=== PATIENT | male | born 1995 | race Caucasian/White ===

== ENCOUNTER 2021-05-01 16:52 | Emergency (ER) | payer OTHER, SELFPAY ==
[2021-05-01] VITALS (12 sets, daily range): BP systolic 124–152; BP diastolic 66–95; PULSE 112–147; RESP 9–32; TEMP 36.2; O2SAT 96–100; BMI 45.1
--- NOTE | 2021-05-01 17:27 | ED.GENADULT ---
HPI - General Adult General Chief complaint: Diabetic Problem Stated complaint: high blood sugar Time Seen by Provider: 05/01/21 17:02 Source: patient Mode of arrival: Ambulatory Limitations: no limitations Related Data Allergies Allergy/AdvReac Type Severity Reaction Status Date / Time No Known Drug Allergies Allergy Verified 05/01/21 17:15 Patient History Social History Smoking Status: Former smoker Smoking Status: Former smoker alcohol intake frequency: 0-2 drinks per day Substance Use Type: does not use Exam Initial Vital Signs Initial Vital Signs: Vital Signs Temperature 97.1 F L 05/01/21 17:09 Pulse Rate 147 H 05/01/21 17:09 Respiratory Rate 28 H 05/01/21 17:09 Blood Pressure 152/66 H 05/01/21 17:09 Pulse Oximetry 98 05/01/21 17:09 Course Orders Ordered: ED Orders 05/01/21 17:16 Blood Culture Stat Complete Blood Count AUTO DIFF Stat Comprehensive Metabolic Panel Stat Ketones (Beta-Hydroxybutyrate) Stat Lactate (Lactic Acid) Stat Procalcitonin Stat Venous Blood Gas Stat EKG-12 Lead Stat Sodium Chloride (Normal Saline 0.9%) 1,000 mls @ 1,000 mls/hr IV BOLUS ONE Stop: 05/01/21 18:15 Vital Signs Vital signs: Vital Signs - 8 hr 05/01/21 17:09 Temperature 97.1 F L Pulse Rate 147 H Respiratory Rate 28 H Blood Pressure 152/66 H Pulse Oximetry 98
[2021-05-01 17:42] LABS: Add Manual Diff / Slide Review NO; Basophils Absolute Auto 100 /uL (0-100); Basophils Percent Auto 0.8 % (0-2); Eosinophils Absolute Auto 100 /uL (0-450); Eosinophils Percent Auto 1.1 % (2-4); Hematocrit 45.5 % (41-53); Hemoglobin 16.3 g/dL (13.5-17.5); Lymphocytes Absolute Auto 800 /uL (1100-4500); Lymphocytes Percent Auto 10.7 % (25-40); Mean Corpuscular HGB Conc 35.9 % (30-36); Mean Corpuscular Hemoglobin 30.8 PG (26-34); Mean Corpuscular Volume 85.8 fL (80-100); Monocytes Absolute Auto 800 /uL (0-900); Monocytes Percent Auto 10.8 % (3-14); Neutrophils Absolute Auto 6000 /uL (1500-7000); Neutrophils Percent Auto 76.6 % (50-75); Platelet Count 248 X10^3/uL (150-400); Red Cell Distribution Width 12.4 % (11.6-14.8); White Blood Cell Count 7.9 X10^3/uL (4.5-11.0)
[2021-05-01] MEDS: SODIUM CHLORIDE 0.9% 1,000 ML 1000 ML IV ×2 (17:42→19:02)
[2021-05-01 17:51] LABS: Alanine Aminotransferase 147 IU/L (<50); Albumin 4.8 g/dL (3.5-5.0); Albumin Globulin Ratio 1.5 (1.0-2.8); Alkaline Phosphatase 93 U/L (38-126); Aspartate Aminotransferase 98 IU/L (17-59); BUN Creatinine Ratio 12.5 (6-22); Blood Urea Nitrogen 10 mg/dL (9-20); Calcium 9.4 mg/dL (8.4-10.2); Carbon Dioxide 27 mmol/L (22-32); Chloride 100 mmol/L (98-107); Estimated Glomerular Filt Rate > 60.0 mL/min (>60); Globulin 3.3 g/dL (1.7-4.1); Glucose 303 mg/dL (70-100); HEMOLYSIS 24 (0-50); Potassium 3.9 mmol/L (3.4-5.1); Sodium 135 mmol/L (137-145); Total Protein 8.1 g/dL (6.3-8.2)
[2021-05-01 17:52] LABS: Lactate (Lactic Acid) 2.2 mmol/L (0.7-2.1)
[2021-05-01 17:54] LABS: Ketones (Beta-Hydroxybutyrate) 0.17 mmol/L (<0.27)
[2021-05-01 18:11] LABS: Procalcitonin 0.15 ng/mL (<0.5)
[2021-05-01 18:24] LABS: HCO3 VBG 25 mmol/L (23-28); PCO2 VBG 38.1 mmHg (45-50); PO2 VBG 37 mmHg (35-45); Total CO2 VBG 26 mmol/L (24-29); pH VBG 7.43 (7.33-7.43)
[2021-05-01 18:24] LABS: Thyroid Stimulating Hormone 1.53 uIU/mL (0.47-4.68)
[2021-05-01 18:25] LABS: Oxygen Saturation VBG 73 % (70-75)
--- NOTE | 2021-05-01 19:04 | ED.GENADULT ---
HPI - General Adult General Chief complaint: Diabetic Problem Stated complaint: high blood sugar Time Seen by Provider: 05/01/21 17:02 Source: patient Mode of arrival: Ambulatory History of Present Illness HPI narrative: Patient is a 25-year-old male who has no past medical history sent over by a walk-in clinic on [facility] concern for new onset diabetes. The last 3 days he has had poly dyspnea and polyuria. He denies any heart palpitations chest pain or shortness of breath. He has no abdominal pain nausea or vomiting, or fever. He is overweight and is in the fitness program. Other members of his family also have diabetes. Related Data Previous Rx's Medication Instructions Recorded metformin 500 mg tablet 500 mg PO BID #60 tab 05/01/21 Allergies Allergy/AdvReac Type Severity Reaction Status Date / Time No Known Drug Allergies Allergy Verified 05/01/21 17:15 Review of Systems Review of Systems Narrative: GENERAL: Denies chills, fatigue, malaise, fever, sweats, travel HEENT: Denies sinus pain, ear pain, sore throat, difficulty swallowing, neck pain RESPIRATORY: Denies dyspnea, cough, wheezing, hemoptysis, sputum. CARDIOVASCULAR: Denies chest pain, palpitations, orthopnea, edema GASTROINTESTINAL: Denies nausea, vomiting, abdominal pain, diarrhea, constipation, melena. : Denies dysuria, frequency, incontinence, hematuria, urinary retention, flank pain. MUSCULOSKELETAL: Denies weakness, joint pain, or bony pain SKIN: No rash, no erythema, no pruritus NEUROLOGIC: Denies weakness, dizziness, headache, numbness, change in speech, confusion PSYCHIATRIC: No concerning psychosocial issues. 12 point review of systems is negative except for those stated above and HPI Endocrine Endocrine: Reports as per HPI, Reports polydipsia and Reports polyuria Patient History Social History Smoking Status: Former smoker Smoking Status: Former smoker alcohol intake frequency: 0-2 drinks per day Substance Use Type: does not use Exam Initial Vital Signs Initial Vital Signs: Vital Signs Temperature 97.1 F L 05/01/21 17:09 Pulse Rate 147 H 05/01/21 17:09 Respiratory Rate 28 H 05/01/21 17:09 Blood Pressure 152/66 H 05/01/21 17:09 Pulse Oximetry 98 05/01/21 17:09 GENERAL: Alert well-appearing 25-year-old male with BMI 45 HEENT: Head atraumatic,EOMI, pupils reactive, face symmetric, [moist] mucous membranes CARDIOVASCULAR: Regular rate and rhythm without murmurs, rubs or gallops. RESPIRATORY: Breath sounds equal bilaterally, no wheezes rales or rhonchi. ABDOMEN: Soft, nontender. Normoactive bowel sounds all 4 quadrants. No guarding or rebound. EXTREMITIES: Normal range of motion, no clubbing or edema. Neurovascularly intact NEUROLOGICAL: Alert and oriented x4.Normal gait and speech. SKIN: Warm, dry, no laceration, no petechiae, no rashes or lesions. Course Orders Ordered: ED Orders 05/01/21 18:54 UA Complete [Urinalysis and Microscopic] Stat 05/01/21 19:22 Blood Culture Stat Discontinued Medications Sodium Chloride (Normal Saline 0.9%) 1,000 mls @ 1,000 mls/hr IV BOLUS ONE Stop: 05/01/21 18:15 Last Infusion: 05/01/21 18:53 Dose: 0 mls/hr Documented by: Admin: 05/01/21 17:42 Dose: 1,000 mls/hr Documented by: SHITAL Sodium Chloride (Normal Saline 0.9%) 1,000 mls @ 1,000 mls/hr IV BOLUS ONE Stop: 05/01/21 19:56 Last Infusion: 05/01/21 20:27 Dose: 0 mls/hr Documented by: Admin: 05/01/21 19:02 Dose: 1,000 mls/hr Documented by: PRIMO Vital Signs Vital signs: Vital Signs - 8 hr 05/01/21 19:35 05/01/21 20:00 05/01/21 20:30 Pulse Rate 120 H 112 H 114 H Respiratory Rate 19 9 L 24 Blood Pressure 135/78 136/80 139/80 Pulse Oximetry 96 100 98 05/01/21 20:53 05/01/21 21:00 Pulse Rate 119 H 114 H Respiratory Rate Blood Pressure 126/88 124/67 Pulse Oximetry 98 96 Medical Decision Making Lab Data Result diagrams: 05/01/21 17:25 05/01/21 17:25 Labs: Lab Results 05/01/21 05/01/21 05/01/21 Range/Units 17:25 17:25 17:25 WBC 7.9 (4.5-11.0) X10^3/uL RBC 5.30 (4.5-5.9) X10^6/uL Hgb 16.3 (13.5-17.5) g/dL Hct 45.5 (41-53) % MCV 85.8 (80-100) fL MCH 30.8 (26-34) PG MCHC 35.9 (30-36) % RDW 12.4 (11.6-14.8) % Plt Count 248 (150-400) X10^3/uL Neut % (Auto) 76.6 H (50-75) % Lymph % (Auto) 10.7 L (25-40) % [place] % (Auto) 10.8 (3-14) % Eos % (Auto) 1.1 L (2-4) % Baso % (Auto) 0.8 (0-2) % Neut # (Auto) 6000 (1984-0876) /uL Lymph # (Auto) 800 L (2274-8195) /uL [place] # (Auto) 800 (0-900) /uL Eos # (Auto) 100 (0-450) /uL Baso # (Auto) 100 (0-100) /uL D-Dimer (<230) ng/mL VBG pH (7.33-7.43) VBG pCO2 (45-50) mmHg VBG pO2 (35-45) mmHg VBG HCO3 (23-28) mmol/L VBG Total CO2 (24-29) mmol/L VBG O2 Saturation (70-75) % VBG Base Excess (0-4) mmol/L Sodium 135 L (137-145) mmol/L Potassium 3.9 (3.4-5.1) mmol/L Chloride 100 (98-107) mmol/L Carbon Dioxide 27 (22-32) mmol/L BUN 10 (9-20) mg/dL Creatinine 0.80 (0.66-1.25) mg/dL Estimated GFR > 60.0 (>60) mL/min BUN/Creatinine Ratio 12.5 (6-22) Glucose 303 H (70-100) mg/dL Hemoglobin A1c (4.0-6.0) % Lactate 2.2 H (0.7-2.1) mmol/L Calcium 9.4 (8.4-10.2) mg/dL Total Bilirubin 1.0 (0.2-1.3) mg/dL AST 98 H (17-59) IU/L ALT 147 H (<50) IU/L Alkaline Phosphatase 93 (38-126) U/L Total Creatine Kinase (55-170) U/L CK-MB (CK-2) (<2.37) ng/mL CK-MB (CK-2) Rel Index (1.5-5.0) % Troponin I (0.01-0.034) ng/mL Total Protein 8.1 (6.3-8.2) g/dL Albumin 4.8 (3.5-5.0) g/dL Globulin 3.3 (1.7-4.1) g/dL Albumin/Globulin Ratio 1.5 (1.0-2.8) Procalcitonin 0.15 (<0.5) ng/mL TSH (0.47-4.68) uIU/mL Urine Color Urine Appearance Urine pH (4.5-8.0) Ur Specific [place] (1.000-1.035) Urine Protein (Negative) Urine Glucose (UA) (Negative) g/dL Urine Ketones (NEGATIVE) Urine Occult Blood (Negative) Urine Nitrate (Negative) Urine Bilirubin (NEGATIVE) Urine Urobilinogen (0.2) E.U./dL Ur Leukocyte Esterase (NEGATIVE) Urine RBC (0-5/HPF) Urine WBC (0-5/HPF) Urine Bacteria (None) Ur Culture Indicated? Ketones 0.17 (<0.27) mmol/L 05/01/21 05/01/21 05/01/21 Range/Units 17:25 17:25 17:25 WBC (4.5-11.0) X10^3/uL RBC (4.5-5.9) X10^6/uL Hgb (13.5-17.5) g/dL Hct (41-53) % MCV (80-100) fL MCH (26-34) PG MCHC (30-36) % RDW (11.6-14.8) % Plt Count (150-400) X10^3/uL Neut % (Auto) (50-75) % Lymph % (Auto) (25-40) % [place] % (Auto) (3-14) % Eos % (Auto) (2-4) % Baso % (Auto) (0-2) % Neut # (Auto) (5371-0788) /uL Lymph # (Auto) (2797-8792) /uL [place] # (Auto) (0-900) /uL Eos # (Auto) (0-450) /uL Baso # (Auto) (0-100) /uL D-Dimer < 200 (<230) ng/mL VBG pH (7.33-7.43) VBG pCO2 (45-50) mmHg VBG pO2 (35-45) mmHg VBG HCO3 (23-28) mmol/L VBG Total CO2 (24-29) mmol/L VBG O2 Saturation (70-75) % VBG Base Excess (0-4) mmol/L Sodium (137-145) mmol/L Potassium (3.4-5.1) mmol/L Chloride (98-107) mmol/L Carbon Dioxide (22-32) mmol/L BUN (9-20) mg/dL Creatinine (0.66-1.25) mg/dL Estimated GFR (>60) mL/min BUN/Creatinine Ratio (6-22) Glucose (70-100) mg/dL Hemoglobin A1c 9.7 H (4.0-6.0) % Lactate (0.7-2.1) mmol/L Calcium (8.4-10.2) mg/dL Total Bilirubin (0.2-1.3) mg/dL AST (17-59) IU/L ALT (<50) IU/L Alkaline Phosphatase (38-126) U/L Total Creatine Kinase 119 (55-170) U/L CK-MB (CK-2) 0.51 (<2.37) ng/mL CK-MB (CK-2) Rel Index 0.4 L (1.5-5.0) % Troponin I < 0.012 (0.01-0.034) ng/mL Total Protein (6.3-8.2) g/dL Albumin (3.5-5.0) g/dL Globulin (1.7-4.1) g/dL Albumin/Globulin Ratio (1.0-2.8) Procalcitonin (<0.5) ng/mL TSH (0.47-4.68) uIU/mL Urine Color Urine Appearance Urine pH (4.5-8.0) Ur Specific [place] (1.000-1.035) Urine Protein (Negative) Urine Glucose (UA) (Negative) g/dL Urine Ketones (NEGATIVE) Urine Occult Blood (Negative) Urine Nitrate (Negative) Urine Bilirubin (NEGATIVE) Urine Urobilinogen (0.2) E.U./dL Ur Leukocyte Esterase (NEGATIVE) Urine RBC (0-5/HPF) Urine WBC (0-5/HPF) Urine Bacteria (None) Ur Culture Indicated? Ketones (<0.27) mmol/L 05/01/21 05/01/21 05/01/21 Range/Units 17:31 17:40 18:54 WBC (4.5-11.0) X10^3/uL RBC (4.5-5.9) X10^6/uL Hgb (13.5-17.5) g/dL Hct (41-53) % MCV (80-100) fL MCH (26-34) PG MCHC (30-36) % RDW (11.6-14.8) % Plt Count (150-400) X10^3/uL Neut % (Auto) (50-75) % Lymph % (Auto) (25-40) % [place] % (Auto) (3-14) % Eos % (Auto) (2-4) % Baso % (Auto) (0-2) % Neut # (Auto) (2672-5753) /uL Lymph # (Auto) (8096-6527) /uL [place] # (Auto) (0-900) /uL Eos # (Auto) (0-450) /uL Baso # (Auto) (0-100) /uL D-Dimer (<230) ng/mL VBG pH 7.43 (7.33-7.43) VBG pCO2 38.1 L (45-50) mmHg VBG pO2 37 (35-45) mmHg VBG HCO3 25 (23-28) mmol/L VBG Total CO2 26 (24-29) mmol/L VBG O2 Saturation 73 (70-75) % VBG Base Excess 1.0 (0-4) mmol/L Sodium (137-145) mmol/L Potassium (3.4-5.1) mmol/L Chloride (98-107) mmol/L Carbon Dioxide (22-32) mmol/L BUN (9-20) mg/dL Creatinine (0.66-1.25) mg/dL Estimated GFR (>60) mL/min BUN/Creatinine Ratio (6-22) Glucose (70-100) mg/dL Hemoglobin A1c (4.0-6.0) % Lactate (0.7-2.1) mmol/L Calcium (8.4-10.2) mg/dL Total Bilirubin (0.2-1.3) mg/dL AST (17-59) IU/L ALT (<50) IU/L Alkaline Phosphatase (38-126) U/L Total Creatine Kinase (55-170) U/L CK-MB (CK-2) (<2.37) ng/mL CK-MB (CK-2) Rel Index (1.5-5.0) % Troponin I (0.01-0.034) ng/mL Total Protein (6.3-8.2) g/dL Albumin (3.5-5.0) g/dL Globulin (1.7-4.1) g/dL Albumin/Globulin Ratio (1.0-2.8) Procalcitonin (<0.5) ng/mL TSH 1.53 (0.47-4.68) uIU/mL Urine Color Yellow Urine Appearance Clear Urine pH 5.5 (4.5-8.0) Ur Specific [place] 1.020 (1.000-1.035) Urine Protein Negative (Negative) Urine Glucose (UA) 1+ H (Negative) g/dL Urine Ketones Trace H (NEGATIVE) Urine Occult Blood Negative (Negative) Urine Nitrate Negative (Negative) Urine Bilirubin Negative (NEGATIVE) Urine Urobilinogen 0.2 (0.2) E.U./dL Ur Leukocyte Esterase Negative (NEGATIVE) Urine RBC 0-1/hpf (0-5/HPF) Urine WBC 0-1/hpf (0-5/HPF) Urine Bacteria None seen (None) Ur Culture Indicated? Cult not indicated Ketones (<0.27) mmol/L 05/01/21 Range/Units 20:01 WBC (4.5-11.0) X10^3/uL RBC (4.5-5.9) X10^6/uL Hgb (13.5-17.5) g/dL Hct (41-53) % MCV (80-100) fL MCH (26-34) PG MCHC (30-36) % RDW (11.6-14.8) % Plt Count (150-400) X10^3/uL Neut % (Auto) (50-75) % Lymph % (Auto) (25-40) % [place] % (Auto) (3-14) % Eos % (Auto) (2-4) % Baso % (Auto) (0-2) % Neut # (Auto) (7735-4254) /uL Lymph # (Auto) (1052-4907) /uL [place] # (Auto) (0-900) /uL Eos # (Auto) (0-450) /uL Baso # (Auto) (0-100) /uL D-Dimer (<230) ng/mL VBG pH (7.33-7.43) VBG pCO2 (45-50) mmHg VBG pO2 (35-45) mmHg VBG HCO3 (23-28) mmol/L VBG Total CO2 (24-29) mmol/L VBG O2 Saturation (70-75) % VBG Base Excess (0-4) mmol/L Sodium (137-145) mmol/L Potassium (3.4-5.1) mmol/L Chloride (98-107) mmol/L Carbon Dioxide (22-32) mmol/L BUN (9-20) mg/dL Creatinine (0.66-1.25) mg/dL Estimated GFR (>60) mL/min BUN/Creatinine Ratio (6-22) Glucose (70-100) mg/dL Hemoglobin A1c (4.0-6.0) % Lactate 1.3 (0.7-2.1) mmol/L Calcium (8.4-10.2) mg/dL Total Bilirubin (0.2-1.3) mg/dL AST (17-59) IU/L ALT (<50) IU/L Alkaline Phosphatase (38-126) U/L Total Creatine Kinase (55-170) U/L CK-MB (CK-2) (<2.37) ng/mL CK-MB (CK-2) Rel Index (1.5-5.0) % Troponin I (0.01-0.034) ng/mL Total Protein (6.3-8.2) g/dL Albumin (3.5-5.0) g/dL Globulin (1.7-4.1) g/dL Albumin/Globulin Ratio (1.0-2.8) Procalcitonin (<0.5) ng/mL TSH (0.47-4.68) uIU/mL Urine Color Urine Appearance Urine pH (4.5-8.0) Ur Specific [place] (1.000-1.035) Urine Protein (Negative) Urine Glucose (UA) (Negative) g/dL Urine Ketones (NEGATIVE) Urine Occult Blood (Negative) Urine Nitrate (Negative) Urine Bilirubin (NEGATIVE) Urine Urobilinogen (0.2) E.U./dL Ur Leukocyte Esterase (NEGATIVE) Urine RBC (0-5/HPF) Urine WBC (0-5/HPF) Urine Bacteria (None) Ur Culture Indicated? Ketones (<0.27) mmol/L ECG Data Interpretation: Sinus tachycardia rate 140 p.r. interval 144 QRS [address] changes MDM Narrative Medical decision making narrative: The patient is found to have new onset diabetes. Glucose is in the 300 out signs of DKA. He is quite tachycardic with heart rate in the 140s but it does improve to 106-115 with 2 L of IV fluids. He of has hemoglobin A1c of 9.7. He overall appears well. Liver enzymes are noted to be mildly elevated he has no right upper quadrant pain the bilirubin his within normal limits this is probably due to body habitus however does not correlate clinically. Will start patient on metformin with outpatient follow-up with the [facility]. Discharge Plan Departure Patient Disposition: Home Clinical Impression: Diabetes mellitus Instructions: DI for Diabetes Type 2 Activity Restrictions/Additional Instructions: *You have been diagnosed with new onset diabetes *What to do: At this time hemoglobin A1c is 9.7. Strongly encourage lifestyle modifications with increased exercise and monitoring sugars and carbohydrates. A diet fruits vegetables and lean meats will help get this under control for you. *Continue to take medications as directed Metformin 500 mg twice a day *Follow up with your primary care provider in 2-3 days or call [phone] *Return to ER if you should have increased abdominal pain, nausea, vomiting, chest pain palpitations or any new, worsening or concerning symptoms Prescriptions: New metformin 500 mg tablet 500 mg PO BID Qty: 60 0RF
[2021-05-01 19:24] LABS: Creatine Kinase 119 U/L (55-170)
[2021-05-01 19:27] LABS: D Dimer < 200 ng/mL (<230)
[2021-05-01 19:31] LABS: Reflexed Lactate in 2 Hours Y
[2021-05-01 19:36] LABS: Appearance Urine UA CLEAR; Bilirubin Urine UA NEGATIVE (NEGATIVE); Color Urine UA YELLOW; Glucose Urine UA 1+ g/dL (Negative); Ketones Urine UA TRACE (NEGATIVE); Leukocyte Esterase Urine UA NEGATIVE (NEGATIVE); Nitrite Urine UA NEGATIVE (Negative); Occult Blood Urine UA NEGATIVE (Negative); Protein Urine UA NEGATIVE (Negative); Urobilinogen Urine UA 0.2 E.U./dL (0.2); pH Urine UA 5.5 (4.5-8.0)
[2021-05-01 19:37] LABS: Troponin I < 0.012 ng/mL (0.01-0.034)
[2021-05-01 19:38] LABS: Bacteria Urine None Seen; Culture Indicated Urine Cult Not Indicated; RBC Urine 0-1/HPF (0-5/HPF); WBC Urine 0-1/HPF (0-5/HPF)
[2021-05-01 19:39] LABS: CKMB % Relative Index 0.4 % (1.5-5.0); Creatine Kinase MB 0.51 ng/mL (<2.37)
[2021-05-01 19:40] LABS: Hemoglobin A1C% w Est Avg Glu 9.7 % (4.0-6.0)
[2021-05-01 20:16] LABS: Lactate 2HR (Lactic Acid Rflx) 1.3 mmol/L (0.7-2.1)
--- NOTE | 2021-05-01 20:27 | PC.NURSE ---
pt resting quietly on stretcher states he is feeling good
== END 2021-05-01 21:43 | disposition home or self-care (01) ==
PROVIDERS: Emergency Medicine; Emergency Provider Emergency Medicine
DX: E11.9 Type 2 diabetes mellitus without complications (principal); Z87.891 Personal history of nicotine dependence
CPT/HCPCS: 36415; 80053; 81001; 82009; 82550; 82553; 82805; 83036; 83605; 84145; 84443; 84484; 85025; 85379; 87040; 93005; 93010; 96360; 96361; 99284